=== PATIENT | female | born 1960 | race Caucasian/White ===

== ENCOUNTER 2019-04-17 09:16 | Emergency (ER) | payer OTHER ==
[2019-04-17 09:32] VITALS: RESP 18
[2019-04-17] MEDS ORDERED: ACET/COD 300 MG/30 MG STARTER PACK 6 TAB BTL PO STA (10:02)
[2019-04-17] MEDS ORDERED: IBUPROFEN 600 MG STARTER PACK 4 TAB BTL PO STA (10:02)
--- NOTE | 2019-04-17 10:10 | ED ---
General Adult HPI - General Chief complaint: Extremity Injury, Lower Stated complaint: Fall/ankle injury Time Seen by Provider: 04/17/19 09:41 Source: patient, RN notes reviewed, old records reviewed Mode of arrival: ambulatory Limitations: no limitations - History of Present Illness Initial comments: Dung is a 58 rolled female presents emergency department today with right foot and ankle pain. Patient reports that she was getting up out of her chair, when she rolled her right ankle. She reports that she's had significant pain with ambulating. Patient states that she's had no previous ankle or foot fractures. Patient relates that the pain is worse over the lateral malleolus. Patient denies any knee pain. - Related Data Previous Rx's Medication Instructions Recorded Acetaminophen with Codeine 1 tab PO Q6H PRN 3 Days #12 tab 04/17/19 [Tylenol w/codeine #3] Ibuprofen [Motrin] 600 mg PO Q6HR PRN #20 tab 04/17/19 Allergies Allergy/AdvReac Type Severity Reaction Status Date / Time divya Allergy Nausea & Uncoded 04/17/19 09:33 Vomiting Review of Systems ROS Statement: Those systems with pertinent positive or pertinent negative responses have been documented in the HPI. ROS Other: All systems not noted in ROS Statement are negative. Past Medical History Past Medical History: No Reported History History of Any Multi-Drug Resistant Organisms: None Reported Past Surgical History: Cholecystectomy, Hysterectomy Past Psychological History: No Psychological Hx Reported Smoking Status: Never smoker Past Alcohol Use History: Occasional Past Drug Use History: None Reported General Exam Limitations: no limitations General appearance: alert, in no apparent distress Head exam: Present: atraumatic, normocephalic, normal inspection Eye exam: Present: normal appearance, PERRL, EOMI. Absent: scleral icterus, conjunctival injection, periorbital swelling ENT exam: Present: normal exam, mucous membranes moist Neck exam: Present: normal inspection. Absent: tenderness, meningismus, lymphadenopathy Respiratory exam: Present: normal lung sounds bilaterally. Absent: respiratory distress, wheezes, rales, rhonchi, stridor Cardiovascular Exam: Present: regular rate, normal rhythm, normal heart sounds. Absent: systolic murmur, diastolic murmur, rubs, gallop, clicks GI/Abdominal exam: Present: soft, normal bowel sounds. Absent: distended, tenderness, guarding, rebound, rigid Right Knee exam: Present: normal inspection, full ROM Lower Leg exam: Present: normal inspection, full ROM Ankle exam: Present: full ROM, tenderness, swelling (Patient has tenderness, and swelling over the lateral malleolus. Normal pulse distally, 2+ noted dorsalis pedis. She has full range of motion of the toes and normal capillary refill.). Absent: normal inspection Foot/Toe exam: Present: normal inspection, full ROM Neurovascular tendon exam: Present: no vascular compromise Gait: observed and limited by pain Back exam: Present: normal inspection Neurological exam: Present: alert, oriented X3, CN II-XII intact Course Vital Signs 04/17/19 09:30 Temperature 98.0 F Pulse Rate 64 Respiratory 18 Rate Blood Pressure 116/76 O2 Sat by Pulse 96 Oximetry Procedures - Orthopedic Splinting/Casting Injury #1 Side: right Lower Extremity Injury Location: ankle Lower Extremity Immobilizer: posterior splint, stirrup splint, Cecilio wrap, synthetic pre-padded splint Other Orthopedic Equipment: crutches Additional Comments: Patient was reevaluated neurovascularly intact. Medical Decision Making - Medical Decision Making 38-year-old female presents today for right ankle injury. Patient at this time tripped while getting off her couch rolled her ankle. She has a distal fibula fracture. She is neurovascularly intact. Patient was placed in a posterior and stirrup splint. Advised to rest ice and elevate the foot. She is ambulate with crutches that she has a home. Discussed return parameters and oriented to follow-up on Friday. - Radiology Data Radiology results: report reviewed Foot x-rays negative for any acute osseous lesion. Mildly displaced fracture of the distal right fibula and ankle x-ray. Disposition Clinical Impression: Closed right fibular fracture Disposition: HOME SELF-CARE Condition: Good Instructions (If sedation given, give patient instructions): Ankle Fracture (ED) Additional Instructions: Please use medication as discussed. Follow-up with Ajit on Friday. Rest, ice, and elevate the ankle. Ambulate with crutches. Please follow up with family doctor if symptoms have not improved over the next two days. Please return to the emergency room if your symptoms increase or worsen or for any other concerns. Prescriptions: Ibuprofen [Motrin] 600 mg PO Q6HR PRN #20 tab PRN Reason: Pain Acetaminophen with Codeine [Tylenol w/codeine #3] 1 tab PO Q6H PRN 3 Days #12 tab PRN Reason: Pain Is patient prescribed a controlled substance at d/c from ED?: Yes If prescribed controlled substance>3 days was MAPS reviewed?: Prescribed <3 Days If opioid is for acute pain is fill amount 7 days or less?: Yes If Rx opioid, was Start Talking consent form obtained?: Yes Referrals: Heather Olsen MD [Primary Care Provider] - 1-2 days Time of Disposition: 11:22
--- NOTE | 2019-04-17 10:42 | XR ---
EXAMINATION TYPE: XR ankle complete RT , 3 VIEWS DATE OF EXAM ORDERED: 04/17/2019 HISTORY: pain. COMPARISON: None. FINDINGS: There is a mildly displaced fracture of the distal right fibula. No definite tibial fractu re is seen. No joint effusion is evident. Note is made of a plantar calcaneal spur. IMPRESSION: MILDLY DISPLACED FRACTURE THE DISTAL RIGHT FIBULA. CODE A: INITIAL ENCOUNTER FOR CLOSED FRACTURE.
--- NOTE | 2019-04-17 10:43 | XR ---
EXAMINATION TYPE: XR foot complete RT , 3 VIEWS DATE OF EXAM ORDERED: 04/17/2019 HISTORY: pain. COMPARISON: None. FINDINGS: Distal fibular fracture is not well seen on this view. No fracture or dislocation is seen. There are minimal degenerative changes in the right first MTP neida nt. Note is made of a small plantar calcaneal spur. IMPRESSION: NO ACUTE OSSEOUS LESION.
[2019-04-17 11:36] VITALS: BP 147/80; PULSE 84; TEMP 98
== END 2019-04-17 11:35 | disposition home or self-care (01) ==
LOC: EC 09:16
DX: S82.831A Other fracture of upper and lower end of right fibula, initial encounter for closed fracture (principal); Z91.018 Allergy to other foods; X50.1XXA Overexertion from prolonged static or awkward postures, initial encounter; Y93.89 Activity, other specified
CPT/HCPCS: 29515; 99284